=== PATIENT | female | born 1980 | race Caucasian/White ===

== ENCOUNTER 2016-04-10 20:34 | Emergency (ER) | payer SELFPAY ==
--- NOTE | 2016-04-10 22:21 | ERRECORD ---
[facility] EMERGENCY RECORD HPI ANKLE (20:59 JLOY) CHIEF COMPLAINT: Patient presents for evaluation of injury, to the right ankle, Patient presents for evaluation of swelling, to the right ankle, Patient presents for evaluation of Pt rolled her ankle stepping off a porch 2 days ago. Pain with ambulation but she has been walking on it. No doctor eval yet. HISTORIAN: History provided by patient. MECHANISM OF INJURY: Mechanism of injury: Body motion, twisting. LOCATION: Symptoms are localized, most severe to the lateral malleolus, most severe to the heel is 'numb'. QUALITY: Pain is dull in nature. TIME COURSE: Sudden onset of symptoms, There has been no change in the patient's symptoms over time. ASSOCIATED WITH: No associated decreased use, No associated distal injury, No associated distal neuro complaint, No associated erythema, No associated fever, Associated with foot pain, on the right, No associated inability to ambulate, No associated inability to bear weight, No associated open wounds, Associated with pain with ambulation. EXACERBATED BY: Patient's condition exacerbated by walking, Patient's condition exacerbated by bearing weight. RELIEVED BY: Patient's condition relieved by rest. ROS (21:02 JLOY) MUSCULOSKELETAL: Historian denies deformity, reports injury, reports joint stiffness, reports joint swelling. SKIN: Historian denies rash. PAST MEDICAL HISTORY MEDICAL HISTORY: Flu vaccine not up to date, Tetanus immunization up to date, Date of immunization: 2012, Notes: low potassium, NECK INJURY, Past medical history includes gynecologic history, ovarian cysts. (20:54 KASA) FEMALE SURGICAL HISTORY: Patient has no surgical history, . (20:54 KASA) PSYCHIATRIC HISTORY: ,No previous psychiatric history. (20:54 KASA) SOCIAL HISTORY: Patient drinks socially, twice a month, Patient is a former drug user, abused benzodiazepine, abused inhalants, abused marijuana, abused methamphetamines, abused opiate, abused prescription medication, Patient currently uses tobacco, smokes cigarettes, daily, Patient has smoked for 10 years, Patient smokes 1/2 packs per day, Lives at home, with family. (20:54 KASA) FAMILY HISTORY: Family history is non-contributory to this case. (20:54 KASA) NOTES: Nursing records reviewed, Agree with nursing records. &a-1R&a+25V*p+0X*[id number]*c202B*c15G*c2P*p-0X&a-25V&a+1R Name: Мария Pena : 1980 5 MedRec: [id number] AcctNum: [id number] Prepared: SunApr 10, 2016 22:16 by Interface Page [address] [facility] EMERGENCY RECORD (21:03 JL) KNOWN ALLERGIES Penicillins CURRENT MEDICATIONS (20:47 KASA) None VITAL SIGNS (20:45 KASA) VITAL SIGNS: BP: 112/64, Pulse: 87, Resp: 18, Temp: 97.7 (Temporal), Pain: 8 (Constant), O2 sat: 97 on Room Air, Time: 04/10/2016 20:45. PHYSICAL EXAM (21:03 JLOY) CONSTITUTIONAL: Vital Signs Reviewed, Patient appears non toxic, Patient alert and oriented to person, place and time. LOWER EXTREMITY: Right ankle:, Ankle swelling, Ankle tenderness, Lateral malleolar region, Ankle active range of motion normal, Ankle passive range of motion normal, Ankle tendon function normal, capillary refill less than 2 seconds, distal motor intact, distal sensory intact, Ankle stable. NEURO: Neuro exam findings include patient oriented to person, place and time, Speech normal, Jett coma scale 15. SKIN: Skin exam included findings of skin warm, dry, and normal in color. PSYCHIATRIC: Normal affect. RADIOLOGYINTERPRETATION (21:58 JLOY) LOWER EXTREMITIES: Ankle films negative, on the right, no fracture, no dislocation. SUPERVISOR FURNACE ROOM: Preliminary review of x-rays by, ED Physician. PROBLEM LIST No recorded problems DIAGNOSIS (21:57 JLOY) FINAL: PRIMARY: RIGHT ankle pain. PRESCRIPTION No recorded prescriptions DISPOSITION PATIENT: Disposition Type: Discharge, Disposition: *Discharge Home. (21:57 JLOY) Patient left the department. (22:10 MOISE) Snell: NELLY=MD Jose, Sacha PHIPPS=ASHLEY Calix, Kami &a-1R&a+25V*p+0X*[id number]*c202B*c15G*c2P*p-0X&a-25V&a+1R Name: Мария Pena : 1980 F35 MedRec: [id number] AcctNum: [id number] Prepared: SunApr 10, 2016 22:16 by Interface Page 2 of 2 pMD MTDD
--- NOTE | 2016-04-10 22:26 | PICIS ---
[facility] EMERGENCY RECORD TRIAGE (SunApr 10, 2016 20:47 KASA) TRIAGE NOTES: States she stepped off the porch wrong on Sunday, rolled right ankle on rock? States it was very cold for the first couple of days, today no longer colder, but still hurts, no feeling in the heel. (SunApr 10, 2016 20:47 KASA) PATIENT: NAME: Мария Pena, AGE: 35, GENDER: female, : Sun1980, TIME OF GREET: SunApr 10, 2016 20:35, PREFERRED LANGUAGE: Belizean, ETHNICITY: Not or , ECODE BILLING MAP: [facility], SSN: [id number], Zip Code: [address], KG WEIGHT: 74.84, PHONE: , , , PERSON ID: [id number], PCP: Dr. Duque ([place]). (SunApr 10, 2016 20:47 KASA) COMPLAINT: RT FOOT INJ,FELL FROM PORCH 04/08/16. (SunApr 10, 2016 20:47 KASA) ADMISSION: URGENCY: 4 Non Urgent, ADMISSION SOURCE: Home, TRANSPORT: CAR, BED: ER -03. (SunApr 10, 2016 20:47 KASA) ASSESSMENT: Assessment: swelling along lateral aspect of right ankle. Tender to the slightest touch, Symptoms began 04/08/2016. (20:54 KASA) PAIN: Patient complains of pain described as, numb, sharp, shooting, on a scale 0-10 patient rates pain as 8, Location right ankle, Pain is constant, Onset was 04/08/2016, Aggravating factors:, Pain exacerbated by movement, No relieving factors, Notes: Has tried Naproxen, Tylenol and Ibuprofen, Ice, Rest and Elevation. (20:54 KASA) IMMUNIZATIONS: Tetanus immunization up to date. (20:54 KASA) SIRS SCORING: Heart Rate 55-109 (0), Temp range 96.8-101.1 (0), respiratory rate 12-24 (0), Mental Status altered: no (0). (20:54 KASA) TRIAGE SCREENING: Patient denies suicidal ideation, Patient denies presence of domestic violence. (20:54 KASA) TREATMENTS IN PROGRESS: Treatments given Prehospital: Tylenol (2) & Ibuprofen (4) @ 1800. (20:54 KASA) PROVIDERS: TRIAGE NURSE: Kami Calix RN. (SunApr 10, 2016 20:47 KASA) VITAL SIGNS: BP 112/64, Pulse 87, Resp 18, Temp 97.7, (Temporal), Pain 8, (Constant), O2 Sat 97, on Room Air, Time 04/10/2016 20:45. (20:45 KASA) PREVIOUS VISIT ALLERGIES: Penicillins. (SunApr 10, 2016 20:47 KASA) Penicillins. (20:54 KASA) KNOWN ALLERGIES Penicillins CURRENT MEDICATIONS (20:47 KASA) None VITAL SIGNS (20:45 KASA) &a-1R&a+25V*p+0X*r4957S*c202B*c15G*c2P*p-0X&a-25V&a+1R Name: Мария Pena : 1980 F35 MedRec: [id number] AcctNum: [id number] Prepared: SunApr 10, 2016 22:22 by Interface Page 1 of 5 pMD [facility] EMERGENCY RECORD VITAL SIGNS: BP: 112/64, Pulse: 87, Resp: 18, Temp: 97.7 (Temporal), Pain: 8 (Constant), O2 sat: 97 on Room Air, Time: 04/10/2016 20:45. NURSING ASSESSMENT: EXTREMITY LOWER (20:54 KASA) CONSTITUTIONAL: Patient arrives, via hospital wheelchair, Walked inside on her own, utilized WC per pt request, History obtained from patient, Patient appears, uncomfortable, Patient cooperative, Patient alert, Oriented to person, place and time, Skin warm, Skin dry, Skin normal in color, Mucous membranes pink, Mucous membranes moist, Patient complains of Right ankle pain, States she stepped off the porch wrong on Sunday, rolled right ankle on rock? States it was very cold for the first couple of days, today no longer colder, but still hurts, no feeling in the heel. LEFT LOWER EXTREMITY: Left lower extremity assessment findings include capillary refill less than 2 seconds, Skin color normal, Skin temperature warm, Distal sensation intact, dorsalis pedis pulse is +3. RIGHT LOWER EXTREMITY: Right lower extremity assessment findings include capillary refill less than 2 seconds, Skin color normal, Skin temperature warm, Distal sensation intact, dorsalis pedis pulse is +2, Inspection findings include swelling, to Lateral ankle. SAFETY: Side rails up, Cart/Stretcher in lowest position, Call light within reach, Hospital ID band on, Friend(s) at bedside. NURSING PROCEDURE: BEDSIDE RADIOLOGY (21:05 KASA) PATIENT IDENTIFIER: Patient actively involved in identification process, Patient's identity verified by patient stating name, Patient's identity verified by patient stating date. BEDSIDE RADIOLOGY: Bedside radiology performed by Maritza, Portable x-ray performed, of the right ankle. SAFETY: Side rails up, Cart/Stretcher in lowest position, Call light within reach, Hospital ID band on, Friend(s) at bedside. NURSING PROCEDURE: DISCHARGE NOTE (22:08 KASA) DISCHARGE: Patient discharged to home, ambulating with crutches, friend driving, accompanied by friend, Summary of Care printed/ provided, Discharge instructions given to patient, Simple or moderate discharge teaching performed, . Educated and provided handout regarding diagnosis of: Right ankle pain Follow up with PCP in 7-10 days. Continue to use crutches until able to ambulate without pain, Above person(s) verbalized understanding of discharge instructions and follow-up care, Patient treated and evaluated by physician, Notes: Pt able to ambulate with ease on crutches. Walked away from room very quickly to exit with steady gait. BELONGINGS: Belongings and valuables with patient upon arrival to &a-1R&a+25V*p+0X*j0015D*c202B*c15G*c2P*p-0X&a-25V&a+1R Name: Мария Pena : 1980 F35 MedRec: [id number] AcctNum: [id number] Prepared: SunApr 10, 2016 22:22 by Interface Page 2 of 5 pMD [facility] EMERGENCY RECORD the Emergency Department include:, Belongings and valuables with patient at time of discharge include:, Belongings remain with patient, Valuables remain with patient. SAFETY: Side rails up, Cart/Stretcher in lowest position, Call light within reach, Hospital ID band on, Friend(s) at bedside. NURSING PROCEDURE: NURSE NOTES (21:53 MOISE) NURSES NOTES: Notes: ERMD in with patient. ORDER DETAILS Order Name: CRUTCH ACQUISTION AND INSTRUCTION ED, Status: Done, Time: 22:10 04/10/2016, User: MOISE, - Ordered for: MD Garcia Joshua, - Entered by: MD Garcia Joshua - Murali Apr 10, 2016 21:57, - Quantity: 1, Order Name: XR Ankle Rt 3 View STANDARD, Status: Active, Time: 20:59 04/10/2016, User: NELLY, - Ordered for: MD Garcia Joshua, - Entered by: MD Garcia Joshua - Mon Apr 10, 2016 20:59, - Quantity: 1. HPI ANKLE (20:59 NELLY) CHIEF COMPLAINT: Patient presents for evaluation of injury, to the right ankle, Patient presents for evaluation of swelling, to the right ankle, Patient presents for evaluation of Pt rolled her ankle stepping off a porch 2 days ago. Pain with ambulation but she has been walking on it. No doctor eval yet. HISTORIAN: History provided by patient. MECHANISM OF INJURY: Mechanism of injury: Body motion, twisting. LOCATION: Symptoms are localized, most severe to the lateral malleolus, most severe to the heel is 'numb'. QUALITY: Pain is dull in nature. TIME COURSE: Sudden onset of symptoms, There has been no change in the patient's symptoms over time. ASSOCIATED WITH: No associated decreased use, No associated distal injury, No associated distal neuro complaint, No associated erythema, No associated fever, Associated with foot pain, on the right, No associated inability to ambulate, No associated inability to bear weight, No associated open wounds, Associated with pain with ambulation. EXACERBATED BY: Patient's condition exacerbated by walking, Patient's condition exacerbated by bearing weight. RELIEVED BY: Patient's condition relieved by rest. ROS (21:02 NELLY) MUSCULOSKELETAL: Historian denies deformity, reports injury, reports joint stiffness, reports joint swelling. &a-1R&a+25V*p+0X*m3449B*c202B*c15G*c2P*p-0X&a-25V&a+1R Name: Мария Pena : 1980 F35 MedRec: [id number] AcctNum: [id number] Prepared: SunApr 10, 2016 22:22 by Interface Page 3 of 5 pMD [facility] EMERGENCY RECORD SKIN: Historian denies rash. PAST MEDICAL HISTORY MEDICAL HISTORY: Flu vaccine not up to date, Tetanus immunization up to date, Date of immunization: 2012, Notes: low potassium, NECK INJURY, Past medical history includes gynecologic history, ovarian cysts. (20:54 KASA) FEMALE SURGICAL HISTORY: Patient has no surgical history, . (20:54 KASA) PSYCHIATRIC HISTORY: ,No previous psychiatric history. (20:54 KASA) SOCIAL HISTORY: Patient drinks socially, twice a month, Patient is a former drug user, abused benzodiazepine, abused inhalants, abused marijuana, abused methamphetamines, abused opiate, abused prescription medication, Patient currently uses tobacco, smokes cigarettes, daily, Patient has smoked for 10 years, Patient smokes 1/2 packs per day, Lives at home, with family. (20:54 KASA) FAMILY HISTORY: Family history is non-contributory to this case. (20:54 KASA) NOTES: Nursing records reviewed, Agree with nursing records. (21:03 JLOY) PHYSICAL EXAM (21:03 JLOY) CONSTITUTIONAL: Vital Signs Reviewed, Patient appears non toxic, Patient alert and oriented to person, place and time. LOWER EXTREMITY: Right ankle:, Ankle swelling, Ankle tenderness, Lateral malleolar region, Ankle active range of motion normal, Ankle passive range of motion normal, Ankle tendon function normal, capillary refill less than 2 seconds, distal motor intact, distal sensory intact, Ankle stable. NEURO: Neuro exam findings include patient oriented to person, place and time, Speech normal, Jett coma scale 15. SKIN: Skin exam included findings of skin warm, dry, and normal in color. PSYCHIATRIC: Normal affect. EVENTS TRANSFER: Triage to Emergency Emergency Room -03. (20:47 KASA) Removed from Emergency Emergency Room -03. (22:10 KASA) RADIOLOGYINTERPRETATION (21:58 JLOY) LOWER EXTREMITIES: Ankle films negative, on the right, no fracture, no dislocation. INSPECTION CLERK: Preliminary review of x-rays by, ED Physician. PROBLEM LIST No recorded problems &a-1R&a+25V*p+0X*l1615F*c202B*c15G*c2P*p-0X&a-25V&a+1R Name: Мария Pena : 1980 F35 MedRec: [id number] AcctNum: [id number] Prepared: SunApr 10, 2016 22:22 by Interface Page 4 of 5 pMD [facility] EMERGENCY RECORD DIAGNOSIS (21:57 JLOY) FINAL: PRIMARY: RIGHT ankle pain. DISPOSITION PATIENT: Disposition Type: Discharge, Disposition: *Discharge Home. (21:57 JLDAVID) Patient left the department. (22:10 MOISE) INSTRUCTION (21:57 JLDAVID) DISCHARGE: ANKLE SPRAIN WITH XRAY. FOLLOWUP: Follow up with Primary Care Physician in 7-10 days. PRESCRIPTION No recorded prescriptions IMAGING *DISCHARGE INSTRUCTIONS RECEIPT: Image captured from scanner. (22:11 MOISE) Image captured from scanner. (22:11 MOISE) DME FORM: Image captured from scanner. (22:12 MOISE) ADMIN (21:59 NELLY) DIGITAL SIGNATURE: MD Garcia Joshua. Snell: NELLY=MD Garcia Joshua KASA=Yogi RN, Kami &a-1R&a+25V*p+0X*[id number]*c202B*c15G*c2P*p-0X&a-25V&a+1R Name: Мария Pena : 1980 F35 MedRec: [id number] AcctNum: [id number] Prepared: SunApr 10, 2016 22:22 by Interface Page 5 of 5 pMD MTDD
--- NOTE | 2016-04-10 22:38 | RAD ---
RADIOGRAPH RIGHT ANKLE THREE VIEWS: History: 35-year-old female with acute traumatic right ankle pain after twisting injury. FINDINGS: No fracture or dislocation. Ankle mortise is symmetrical. Talar dome is maintained. IMPRESSION: Normal. POS: FIDELINA
== END 2016-04-10 22:08 | disposition home or self-care (01) ==
LOC: NAV ERS 20:34
DX: M25.571 Pain in right ankle and joints of right foot (principal); F17.210 Nicotine dependence, cigarettes, uncomplicated; X58.XXXA Exposure to other specified factors, initial encounter
CPT/HCPCS: 99283

== ENCOUNTER 2016-08-14 09:02 | Emergency (ER) | payer SELFPAY ==
[2016-08-14 09:36] LABS: #Basophils 0.1 thou/uL (0.0-0.2); #Eosinphils 0.2 thou/uL (0.0-0.7); #Lymphocytes 1.7 thou/uL (1.20-3.40); #Monocytes 0.4 thou/uL (0.11-0.59); #Neutrophils 2.5 thou/uL (1.40-6.50); %Basophils 1.3 % (0.0-1.0); %Eosinophils 3.9 % (0.0-10.0); %Lymphocytes 35.1 % (21.0-51.0); %Monocytes 7.7 % (0.0-10.0); Hemoglobin 11.5 g/dL (12.0-16.0); Mean Corpuscular HGB CONC 31.6 g/dL (32.0-36.0); Mean Corpuscular Volume 79.2 fl (81.0-99.0); Mean Platelet Volume 7.6 fL (7.4-10.4); Platelet Count 266 thou/uL (130-400); RBC Distribution Width 14.9 % (11.5-14.5); Red Blood Cell (RBC) Count 4.59 mill/uL (4.20-5.40); White Blood Cell (WBC) Count 4.9 thou/uL (4.8-10.8)
[2016-08-14 09:46] LABS: ALT (SGPT) 11 U/L (8-55); AST (SGOT) 18 U/L (5-34); Alkaline Phosphatase 60 U/L (40-150); Anion Gap 15 mmol/L (10-20); BUN (Urea Nitrogen) 9 mg/dL (7.0-18.7); Bilirubin, Total 0.2 mg/dL (0.2-1.2); CK (CPK) 240 U/L (29-168); Calc. Creatinine Clearance 0 mL/min (70-130); Calcium 8.7 mg/dL (7.8-10.44); Carbon Dioxide 18 mmol/L (22-29); Chloride 111 mmol/L (98-107); Estimated GFR-MDRD 78; Globulin 3.1 g/dL (2.4-3.5); Glucose 99 mg/dL (70-105); Potassium 4.3 mmol/L (3.5-5.1); Protein, Total 7.1 g/dL (6.0-8.3); Sodium 140 mmol/L (136-145)
[2016-08-14] MEDS ORDERED: Sodium Chloride 0.9% 1,000 ML ONE (09:54)
[2016-08-14] MEDS ORDERED: Fentanyl 100 MCG/2 ML VIAL ONE (09:54)
[2016-08-14 09:57] LABS: PTT 32.9 SEC (22.9-36.1); Prothrombin Time 13.3 SEC (12.0-14.7)
[2016-08-14 09:57] LABS: Bilirubin Negative (Negative); Blood, Urine Negative (Negative); Clarity Clear (Clear); Glucose, Urine (Dipstick) Negative (Negative); Leukocyte Negative (Negative); Nitrite Negative (Negative); Protein, Urine (Dipstick) Negative (Neg-Trace); Specific Gravity, Urine 1.025 (1.005-1.030); Urobilinogen 0.2 mg/dL (0.2-1.0)
[2016-08-14 09:59] LABS: Pregnancy Test - Urine (BHCG) NEGATIVE (NEGATIVE); Pregu Control Bar Appear? YES (CONTROL BAR); Specific Gravity 1.025 (1.002-1.036)
[2016-08-14] MEDS ORDERED: Lorazepam 1 MG TAB ONE (11:02)
[2016-08-14] MEDS ORDERED: Ibuprofen 200 MG TAB ONE (11:55)
== END 2016-08-14 12:31 | disposition home or self-care (01) ==
LOC: NAV ERS 09:02
DX: T63.2X1A Toxic effect of venom of scorpion, accidental (unintentional), initial encounter (principal); F17.210 Nicotine dependence, cigarettes, uncomplicated
CPT/HCPCS: 36415; 80053; 81003; 81025; 82550; 85025; 85610; 85730; 93005; 96361; 96374; J3010; J7050